=== PATIENT | female | born 1945 | race Caucasian/White ===

== ENCOUNTER 2023-11-09 09:06 | Inpatient (IN) | payer OTHER ==
--- OUTSIDE RECORDS SUMMARY | 2023-11-09 09:12 | XMS REPORT | Continuity of Care Document ---
Author Name Unknown Address [address] [facility] [place] [address] [facility] [address] [facility] [address] [place] [address] Care Team Providers Care Cath Lab Nurse Name Role Phone Pcp, Patient Does Not Have A Primary Care Physic partha Doctor Unassigned, [place] Attending Clinician U Ras Saldana MD Attending Clinician [phone] Soto Timmons Attending Clinician [phone] SOTO PRIETO Attending Clinician Unavailable RAS DONOHUE Attending Clinician Unavailabl e ADRIAN CHUNG Attending Clinician Unavailable Adrian Chung MD Attending Clinician Lab, Ang - Db Attending Clinician Unavailable ADRIAN CHUNG Admitting Clinician Unavailable SOTO PRIETO Admitting Clinician Unavailable Payers Payer Name Policy Type Policy Number Effective Date Expirati on Date Source Problems Condition Name Condition Details Condition Category Status Onset Date Resolution Date Last Treatment Date Treating Clinician Comments Source Postmenopa usal bleeding Postmenopa usal bleeding Disease Active 04-28 00:00: 00 [facility] acute hospital Allergies, Adverse Reactions, Alerts Allergy Name Allergy Type Status Severity Reaction(s) Onset Date Inactive Date Treating Clinician Comments Source NO KNOWN ALLERGIE S Drug Class Active General acute hospital Social History Social Habit Start Date Stop Date Quantity Comments Source Sexual orientation U [facility] Exposure to SARS-CoV-2 (event) 2023-01-13 00:00:00 2023-01-23 15:02:00 Not sure [facility] Alcohol intake 2022-11-14 00:00:00 2022-11-14 00:00:00 [facility] History of Social function 2022-09-27 00:00:00 2022-09-27 00:00:00 [facility] Sex Assigned At 1945 00:00:00 1945 00:00:00 [facility] Smoking Status Start Date Stop Date Source Tobacco smoking consumption unknown [facility] Medications Ordered Medication Name Filled Medication Name Start Date Stop Date Current Medication? Ordering Clinician Indication Dosage Frequency Signature (SIG) Comments Components Source meloxicam 15 mg tablet 01-23 00:00: 00 02-23 04:59 :00 No [id number] 05 15mg Take 1 tablet by mouth in the morning for 30 days. General acute hospital meloxicam 15 mg tablet 01-23 00:00: 00 02-23 04:59 :00 No [id number] 05 15mg Take 1 tablet by mouth in the morning for 30 days. General acute hospital meloxicam 15 mg tablet 08 00:00: 00 02-23 04:59 :00 No [id number] 05 15mg Take 1 tablet by mouth in the morning for 30 days. General acute hospital traMADoL 50 mg tablet 2-16 00:00: 00 Yes [id number] 50mg Take 1 tablet by mouth every 4 (four) hours as needed for Pain (scale 7-10). Indication s: acute pain [facility] traMADoL 50 mg tablet 0 2-16 00:00: 00 Yes 4647 50mg Take 1 tablet by mouth every 4 (four) hours as needed for Pain (scale 7-10). Indication s: acute pain [facility] traMADoL 50 mg tablet 0 2-16 00:00: 00 Yes 4647 50mg Take 1 tablet by mouth every 4 (four) hours as needed for Pain (scale 7-10). Indication s: acute pain [facility] traMADoL 50 mg tablet 2023-0 2-16 00:00: 00 Yes 4647 50mg Take 1 tablet by mouth every 4 (four) hours as needed for Pain (scale 7-10). Indication s: acute pain [facility] traMADoL 50 mg tablet 0 2-16 00:00: 00 Yes 4647 50mg Take 1 tablet by mouth every 4 (four) hours as needed for Pain (scale 7-10). Indication s: acute pain [facility] traMADoL 50 mg tablet 2-16 00:00: 00 Yes 4647 50mg Take 1 tablet by mouth every 4 (four) hours as needed for Pain (scale 7-10). Indication s: acute pain [facility] traMADoL 50 mg tablet 0 216 00:00: 00 Yes 4647 50mg Take 1 tablet by mouth every 4 (four) hours as needed for Pain (scale 7-10). Indication s: acute pain [facility] traMADoL 50 mg tablet 0 2-16 00:00: 00 Yes 4647 50mg Take 1 tablet by mouth every 4 (four) hours as needed for Pain (scale 7-10). [facility]: [facility] (TYLENOL-CO DEINE #3) 300-30 mg tablet 2-02 00:00: 00 Yes 4647 2{tbl} Take 2 tablets by mouth every 6 (six) hours as needed for Pain (scale 4-6) or Pain (scale 7-10). Indication s: acute pain [facility] acetaminoph en-codeine (TYLENOL-CO DEINE #3) 300-30 mg tablet 0 2-02 00:00: 00 Yes 4647 2{tbl} Take 2 tablets by mouth every 6 (six) hours as needed for Pain (scale 4-6) or Pain (scale 7-10). Indication s: acute pain [facility] acetaminoph en-codeine (TYLENOL-CO DEINE #3) 300-30 mg tablet 2022-0 2-02 00:00: 00 Yes 4647 2{tbl} Take 2 tablets by mouth every 6 (six) hours as needed for Pain (scale 4-6) or Pain (scale 7-10). Indication s: acute pain [facility] acetaminoph en-codeine (TYLENOL-CO DEINE #3) 300-30 mg tablet 2022-0 2-02 00:00: 00 Yes 4647 2{tbl} Take 2 tablets by mouth every 6 (six) hours as needed for Pain (scale 4-6) or Pain (scale 7-10). Indication s: acute pain [facility] acetaminoph en-codeine (TYLENOL-CO DEINE #3) 300-30 mg tablet 3-0 2-02 00:00: 00 Yes 4647 2{tbl} Take 2 tablets by mouth every 6 (six) hours as needed for Pain (scale 4-6) or Pain (scale 7-10). Indication s: acute pain [facility] acetaminoph en-codeine (TYLENOL-CO DEINE #3) 300-30 mg tablet 3-0 2- 00:00: 00 Yes 4647 2{tbl} Take 2 tablets by mouth every 6 (six) hours as needed for Pain (scale 4-6) or Pain (scale 7-10). Indication s: acute pain [facility] acetaminoph en-codeine (TYLENOL-CO DEINE #3) 300-30 mg tablet 2022-0 2- 00:00: 00 Yes 4647 2{tbl} Take 2 tablets by mouth every 6 (six) hours as needed for Pain (scale 4-6) or Pain (scale 7-10). Indication s: acute pain [facility] acetaminoph en-codeine (TYLENOL-CO DEINE #3) 300-30 mg tablet 3-0 2-02 00:00: 00 Yes 4647 2{tbl} Take 2 tablets by mouth every 6 (six) hours as needed for Pain (scale 4-6) or Pain (scale 7-10). Indication s: acute pain [facility] acetaminoph en-codeine (TYLENOL-CO DEINE #3) 300-30 mg tablet 3-0 2-02 00:00: 00 Yes 4647 2{tbl} Take 2 tablets by mouth every 6 (six) hours as needed for Pain (scale 4-6) or Pain (scale 7-10). Indication s: acute pain [facility] acetaminoph en-codeine (TYLENOL-CO DEINE #3) 300-30 mg tablet 12-20 00:00: 00 Yes 4647 2{tbl} Take 2 tablets by mouth every 6 (six) hours as needed for Pain (scale 4-6) or Pain (scale 7-10). Indication s: acute pain [facility] acetaminoph en-codeine (TYLENOL-CO DEINE #3) 300-30 mg tablet 12-20 00:00: 00 Yes 4647 2{tbl} Take 2 tablets by mouth every 6 (six) hours as needed for Pain (scale 4-6) or Pain (scale 7-10). Indication s: acute pain [facility] acetaminoph en-codeine (TYLENOL-CO DEINE #3) 300-30 mg tablet 12-20 00:00: 00 Yes 4647 2{tbl} Take 2 tablets by mouth every 6 (six) hours as needed for Pain (scale 4-6) or Pain (scale 7-10). Indication s: acute pain [facility] HYDROcodone -acetaminop hen (NORCO) 5-325 mg tablet 12-12 00:00: 00 12-20 05:59 :00 No 4647 1{tbl} Take 1 tablet by mouth every 6 (six) hours as needed for Pain (scale 4-6) for up to 7 days. Indication s: acute pain [facility] HYDROcodone -acetaminop hen (NORCO) 5-325 mg tablet -25 00:00: 00 12-20 05:59 :00 No 4647 1{tbl} Take 1 tablet by mouth every 6 (six) hours as needed for Pain (scale 4-6) for up to 7 days. Indication s: acute pain [facility] HYDROcodone -acetaminop hen (NORCO) 5-325 mg tablet 2022-0 -25 00:00: 00 12-20 05:59 :00 No 4647 1{tbl} Take 1 tablet by mouth every 6 (six) hours as needed for Pain (scale 4-6) for up to 7 days. Indication s: acute pain [facility] HYDROcodone -acetaminop hen (NORCO) 5-325 mg tablet 12-12 00:00: 00 12-20 05:59 :00 No 4647 1{tbl} Take 1 tablet by mouth every 6 (six) hours as needed for Pain (scale 4-6) for up to 7 days. Indication s: acute pain [facility] HYDROcodone -acetaminop hen (NORCO) 5-325 mg tablet 12-12 00:00: 00 12-20 05:59 :00 No 4647 1{tbl} Take 1 tablet by mouth every 6 (six) hours as needed for Pain (scale 4-6) for up to 7 days. Indication s: acute pain [facility] HYDROcodone -acetaminop hen (NORCO) 5-325 mg tablet 12-12 00:00: 00 12-20 05:59 :00 No 4647 1{tbl} Take 1 tablet by mouth every 6 (six) hours as needed for Pain (scale 4-6) for up to 7 days. Indication s: acute pain [facility] diclofenac 75 mg EC tablet 2021-11 00:00: 00 10-28 05:59 :00 No [id number] 9100 75mg Take 1 tablet by mouth in the morning and 1 tablet in the evening. Take with meals. Do all this for 30 days. General acute hospital diclofenac 75 mg EC tablet 2021-11 00:00: 00 10-28 05:59 :00 No [id number] 9100 75mg Take 1 tablet by mouth in the morning and 1 tablet in the evening. Take with meals. Do all this for 30 days. [facility] acute hospital diclofenac 75 mg EC tablet 2021-11 00:00: 00 10-28 05:59 :00 No [id number] 9100 75mg Take 1 tablet by mouth in the morning and 1 tablet in the evening. Take with meals. Do all this for 30 days. [facility] acute hospital diclofenac 75 mg EC tablet 2021-11 00:00: 00 10-28 05:59 :00 No [id number] 9100 75mg Take 1 tablet by mouth in the morning and 1 tablet in the evening. Take with meals. Do all this for 30 days. [facility] CLONIDINE 0.1 MG ORAL TAB 03-28 14:41: 37 Yes 1 bid [facility] CLONIDINE 0.1 MG ORAL TAB 03-28 14:41: 37 Yes 1 bid [facility] CLONIDINE 0.1 MG ORAL TAB 03-28 14:41: 37 Yes 1 bid [facility] CLONIDINE 0.1 MG ORAL TAB 03-28 14:41: 37 Yes 1 bid [facility] CLONIDINE 0.1 MG ORAL TAB 03-28 14:41: 37 Yes 1 bid [facility] CLONIDINE 0.1 MG ORAL TAB 03-28 14:41: 37 Yes 1 bid [facility] CLONIDINE 0.1 MG ORAL TAB 03-28 14:41: 37 Yes 1 bid [facility] CLONIDINE 0.1 MG ORAL TAB 03-28 14:41: 37 Yes 1 bid [facility] CLONIDINE 0.1 MG ORAL TAB 03-28 14:41: 37 Yes 1 bid [facility] CLONIDINE 0.1 MG ORAL TAB 03-28 14:41: 37 Yes 1 bid [facility] CLONIDINE 0.1 MG ORAL TAB 03-28 14:41: 37 Yes 1 bid [facility] CLONIDINE 0.1 MG ORAL TAB 03-28 14:41: 37 Yes 1 bid [facility] CLONIDINE 0.1 MG ORAL TAB 03-28 14:41: 37 Yes 1 bid [facility] CLONIDINE 0.1 MG ORAL TAB 03-28 14:41: 37 Yes 1 bid [facility] CLONIDINE 0.1 MG ORAL TAB 03-28 14:41: 37 Yes 1 bid [facility] CLONIDINE 0.1 MG ORAL TAB 03-28 14:41: 37 Yes 1 bid [facility] CLONIDINE 0.1 MG ORAL TAB 03-28 14:41: 37 Yes 1 bid [facility] CLONIDINE 0.1 MG ORAL TAB 03-28 14:41: 37 Yes 1 bid [facility] CLONIDINE 0.1 MG ORAL TAB 03-28 14:41: 37 Yes 1 bid [facility] CLONIDINE 0.1 MG ORAL TAB 03-28 14:41: 37 Yes 1 bid [facility] CLONIDINE 0.1 MG ORAL TAB 03-28 14:41: 37 Yes 1 bid [facility] CLONIDINE 0.1 MG ORAL TAB 03-28 14:41: 37 Yes 1 bid [facility] CLONIDINE 0.1 MG ORAL TAB 03-28 14:41: 37 Yes 1 bid [facility] CLONIDINE 0.1 MG ORAL TAB 03-28 14:41: 37 Yes 1 bid [facility] CLONIDINE 0.1 MG ORAL TAB 03-28 14:41: 37 Yes 1 bid [facility] CLONIDINE 0.1 MG ORAL TAB 03-28 14:41: 37 Yes 1 bid [facility] CLONIDINE 0.1 MG ORAL TAB 03-28 14:41: 37 Yes 1 bid [facility] CLONIDINE 0.1 MG ORAL TAB 03-28 14:41: 37 Yes 1 bid [facility] CLONIDINE 0.1 MG ORAL TAB 03-28 14:41: 37 Yes 1 bid [facility] CLONIDINE 0.1 MG ORAL TAB 03-28 14:41: 37 Yes 1 bid [facility] CLONIDINE 0.1 MG ORAL TAB 03-28 14:41: 37 Yes 1 bid [facility] CLONIDINE 0.1 MG ORAL TAB 03-28 14:41: 37 Yes 1 bid [facility] CLONIDINE 0.1 MG ORAL TAB 03-28 14:41: 37 Yes 1 bid [facility] CLONIDINE 0.1 MG ORAL TAB 03-28 14:41: 37 Yes 1 bid [facility] CLONIDINE 0.1 MG ORAL TAB 03-28 14:41: 37 Yes 1 bid [facility] CLONIDINE 0.1 MG ORAL TAB 03-28 14:41: 37 Yes 1 bid [facility] CLONIDINE 0.1 MG ORAL TAB 03-28 14:41: 37 Yes 1 bid [facility] CLONIDINE 0.1 MG ORAL TAB 03-28 14:41: 37 Yes 1 bid [facility] CARDIZEM 30 MG ORAL TAB 03-28 00:00: 00 Yes [id number] 1 by mouth four times a day [facility] ATIVAN 0.5 MG ORAL TAB 03-28 00:00: 00 Yes [id number] take one when anxious every 6 hourly [facility] CLONIDINE 0.1 MG ORAL TAB 03-28 00:00: 00 Yes 1 by mouth two times a day [facility] CARDIZEM 30 MG ORAL TAB 03-28 00:00: 00 Yes [id number] 1 by mouth four times a day [facility] ATIVAN 0.5 MG ORAL TAB 03-28 00:00: 00 Yes [id number] take one when anxious every 6 hourly [facility] CLONIDINE 0.1 MG ORAL TAB 03-28 00:00: 00 Yes 1 by mouth two times a day [facility] CARDIZEM 30 MG ORAL TAB 03-28 00:00: 00 Yes [id number] 1 by mouth four times a day [facility] ATIVAN 0.5 MG ORAL TAB 03-28 00:00: 00 Yes [id number] take one when anxious every 6 hourly [facility] CLONIDINE 0.1 MG ORAL TAB 03-28 00:00: 00 Yes 1 by mouth two times a day [facility] CARDIZEM 30 MG ORAL TAB 03-28 00:00: 00 Yes [id number] 1 by mouth four times a day [facility] ATIVAN 0.5 MG ORAL TAB 03-28 00:00: 00 Yes [id number] take one when anxious every 6 hourly [facility] CLONIDINE 0.1 MG ORAL TAB 0 03-28 00:00: 00 Yes 1 by mouth two times a day [facility] CARDIZEM 30 MG ORAL TAB 03-28 00:00: 00 Yes [id number] 1 by mouth four times a day [facility] ATIVAN 0.5 MG ORAL TAB 0 03-28 00:00: 00 Yes [id number] take one when anxious every 6 hourly [facility] CLONIDINE 0.1 MG ORAL TAB 0 03-28 00:00: 00 Yes 1 by mouth two times a day [facility] CARDIZEM 30 MG ORAL TAB 03-28 00:00: 00 Yes [id number] 1 by mouth four times a day [facility] ATIVAN 0.5 MG ORAL TAB 03-28 00:00: 00 Yes [id number] take one when anxious every 6 hourly [facility] CARDIZEM 30 MG ORAL TAB 03-28 00:00: 00 Yes [id number] 1 by mouth four times a day [facility] ATIVAN 0.5 MG ORAL TAB 03-28 00:00: 00 Yes [id number] take one when anxious every 6 hourly [facility] CLONIDINE 0.1 MG ORAL TAB 03-28 00:00: 00 Yes 1 by mouth two times a day [facility] CARDIZEM 30 MG ORAL TAB 03-28 00:00: 00 Yes [id number] 1 by mouth four times a day [facility] ATIVAN 0.5 MG ORAL TAB 0 03-28 00:00: 00 Yes [id number] take one when anxious every 6 hourly [facility] CLONIDINE 0.1 MG ORAL TAB 0 03-28 00:00: 00 Yes 1 by mouth two times a day [facility] CLONIDINE 0.1 MG ORAL TAB 2006-0 03-28 00:00: 00 Yes 1 by mouth two times a day [facility] CARDIZEM 30 MG ORAL TAB 2006-0 03-28 00:00: 00 Yes [id number] 1 by mouth four times a day [facility] ATIVAN 0.5 MG ORAL TAB 0 03-28 00:00: 00 Yes [id number] take one when anxious every 6 hourly [facility] CLONIDINE 0.1 MG ORAL TAB 2006-0 03-28 00:00: 00 Yes 1 by mouth two times a day [facility] CARDIZEM 30 MG ORAL TAB 0 03-28 00:00: 00 Yes [id number] 1 by mouth four times a day [facility] ATIVAN 0.5 MG ORAL TAB 0 03-28 00:00: 00 Yes [id number] take one when anxious every 6 hourly [facility] CLONIDINE 0.1 MG ORAL TAB 0 03-28 00:00: 00 Yes 1 by mouth two times a day [facility] CARDIZEM 30 MG ORAL TAB 0 03-28 00:00: 00 Yes [id number] 1 by mouth four times a day [facility] ATIVAN 0.5 MG ORAL TAB 0 03-28 00:00: 00 Yes [id number] take one when anxious every 6 hourly [facility] CLONIDINE 0.1 MG ORAL TAB 0 03-28 00:00: 00 Yes 1 by mouth two times a day [facility] CARDIZEM 30 MG ORAL TAB 0 03-28 00:00: 00 Yes [id number] 1 by mouth four times a day [facility] ATIVAN 0.5 MG ORAL TAB 0 03-28 00:00: 00 Yes [id number] take one when anxious every 6 hourly [facility] CLONIDINE 0.1 MG ORAL TAB 0 03-28 00:00: 00 Yes 1 by mouth two times a day [facility] CARDIZEM 30 MG ORAL TAB 0 03-28 00:00: 00 Yes [id number] 1 by mouth four times a day [facility] ATIVAN 0.5 MG ORAL TAB 2006-0 03-28 00:00: 00 Yes [id number] take one when anxious every 6 hourly [facility] CLONIDINE 0.1 MG ORAL TAB 2006-0 03-28 00:00: 00 Yes 1 by mouth two times a day [facility] CARDIZEM 30 MG ORAL TAB 0 03-28 00:00: 00 Yes [id number] 1 by mouth four times a day [facility] ATIVAN 0.5 MG ORAL TAB 0 03-28 00:00: 00 Yes [id number] take one when anxious every 6 hourly [facility] CLONIDINE 0.1 MG ORAL TAB 0 03-28 00:00: 00 Yes 1 by mouth two times a day [facility] CARDIZEM 30 MG ORAL TAB 03-28 00:00: 00 Yes [id number] 1 by mouth four times a day [facility] ATIVAN 0.5 MG ORAL TAB 03-28 00:00: 00 Yes [id number] take one when anxious every 6 hourly [facility] CLONIDINE 0.1 MG ORAL TAB 0 03-28 00:00: 00 Yes 1 by mouth two times a day [facility] CARDIZEM 30 MG ORAL TAB 03-28 00:00: 00 Yes [id number] 1 by mouth four times a day [facility] ATIVAN 0.5 MG ORAL TAB 03-28 00:00: 00 Yes [id number] take one when anxious every 6 hourly [facility] CLONIDINE 0.1 MG ORAL TAB 0 03-28 00:00: 00 Yes 1 by mouth two times a day [facility] CARDIZEM 30 MG ORAL TAB 0 03-28 00:00: 00 Yes [id number] 1 by mouth four times a day [facility] ATIVAN 0.5 MG ORAL TAB 0 03-28 00:00: 00 Yes [id number] take one when anxious every 6 hourly [facility] CLONIDINE 0.1 MG ORAL TAB 03-28 00:00: 00 Yes 1 by mouth two times a day [facility] CARDIZEM 30 MG ORAL TAB 0 03-28 00:00: 00 Yes [id number] 1 by mouth four times a day [facility] ATIVAN 0.5 MG ORAL TAB 0 03-28 00:00: 00 Yes [id number] take one when anxious every 6 hourly [facility] CLONIDINE 0.1 MG ORAL TAB 03-28 00:00: 00 Yes 1 by mouth two times a day [facility] CARDIZEM 30 MG ORAL TAB 03-28 00:00: 00 Yes [id number] 1 by mouth four times a day [facility] ATIVAN 0.5 MG ORAL TAB 03-28 00:00: 00 Yes [id number] take one when anxious every 6 hourly [facility] CLONIDINE 0.1 MG ORAL TAB 03-28 00:00: 00 Yes 1 by mouth two times a day [facility] CARDIZEM 30 MG ORAL TAB 03-28 00:00: 00 Yes [id number] 1 by mouth four times a day [facility] CARDIZEM 30 MG ORAL TAB 03-28 00:00: 00 Yes [id number] 1 by mouth four times a day [facility] [place] ATIVAN 0.5 MG ORAL TAB 03-28 00:00: 00 Yes [id number] take one when anxious every 6 hourly [facility] CLONIDINE 0.1 MG ORAL TAB 03-28 00:00: 00 Yes 1 by mouth two times a day [facility] ATIVAN 0.5 MG ORAL TAB 03-28 00:00: 00 Yes [id number] take one when anxious every 6 hourly [facility] CARDIZEM 30 MG ORAL TAB 03-28 00:00: 00 Yes [id number] 1 by mouth four times a day [facility] ATIVAN 0.5 MG ORAL TAB 03-28 00:00: 00 Yes [id number] take one when anxious every 6 hourly [facility] CLONIDINE 0.1 MG ORAL TAB 03-28 00:00: 00 Yes 1 by mouth two times a day [facility] CLONIDINE 0.1 MG ORAL TAB 03-28 00:00: 00 Yes 1 by mouth two times a day [facility] CARDIZEM 30 MG ORAL TAB 03-28 00:00: 00 Yes [id number] 1 by mouth four times a day [facility] ATIVAN 0.5 MG ORAL TAB 03-28 00:00: 00 Yes [id number] take one when anxious every 6 hourly [facility] CLONIDINE 0.1 MG ORAL TAB 03-28 00:00: 00 Yes 1 by mouth two times a day [facility] CARDIZEM 30 MG ORAL TAB 03-28 00:00: 00 Yes [id number] 1 by mouth four times a day [facility] ATIVAN 0.5 MG ORAL TAB 03-28 00:00: 00 Yes [id number] take one when anxious every 6 hourly [facility] CLONIDINE 0.1 MG ORAL TAB 03-28 00:00: 00 Yes 1 by mouth two times a day [facility] CARDIZEM 30 MG ORAL TAB 03-28 00:00: 00 Yes [id number] 1 by mouth four times a day [facility] ATIVAN 0.5 MG ORAL TAB 03-28 00:00: 00 Yes [id number] take one when anxious every 6 hourly [facility] CLONIDINE 0.1 MG ORAL TAB 03-28 00:00: 00 Yes 1 by mouth two times a day [facility] CARDIZEM 30 MG ORAL TAB 03-28 00:00: 00 Yes [id number] 1 by mouth four times a day [facility] ATIVAN 0.5 MG ORAL TAB 03-28 00:00: 00 Yes [id number] take one when anxious every 6 hourly [facility] CLONIDINE 0.1 MG ORAL TAB 03-28 00:00: 00 Yes 1 by mouth two times a day [facility] CARDIZEM 30 MG ORAL TAB 03-28 00:00: 00 Yes [id number] 1 by mouth four times a day [facility] CARDIZEM 30 MG ORAL TAB 0 03-28 00:00: 00 Yes [id number] 1 by mouth four times a day [facility] ATIVAN 0.5 MG ORAL TAB 0 03-28 00:00: 00 Yes [id number] take one when anxious every 6 hourly [facility] CLONIDINE 0.1 MG ORAL TAB 03-28 00:00: 00 Yes 1 by mouth two times a day [facility] CARDIZEM 30 MG ORAL TAB 03-28 00:00: 00 Yes [id number] 1 by mouth four times a day [facility] ATIVAN 0.5 MG ORAL TAB 03-28 00:00: 00 Yes [id number] take one when anxious every 6 hourly [facility] CLONIDINE 0.1 MG ORAL TAB 03-28 00:00: 00 Yes 1 by mouth two times a day [facility] ATIVAN 0.5 MG ORAL TAB 03-28 00:00: 00 Yes [id number] take one when anxious every 6 hourly [facility] CARDIZEM 30 MG ORAL TAB 03-28 00:00: 00 Yes [id number] 1 by mouth four times a day [facility] ATIVAN 0.5 MG ORAL TAB 03-28 00:00: 00 Yes [id number] take one when anxious every 6 hourly [facility] CLONIDINE 0.1 MG ORAL TAB 03-28 00:00: 00 Yes 1 by mouth two times a day [facility] CLONIDINE 0.1 MG ORAL TAB 03-28 00:00: 00 Yes 1 by mouth two times a day [facility] CARDIZEM 30 MG ORAL TAB 03-28 00:00: 00 Yes [id number] 1 by mouth four times a day [facility] ATIVAN 0.5 MG ORAL TAB 03-28 00:00: 00 Yes [id number] take one when anxious every 6 hourly [facility] CLONIDINE 0.1 MG ORAL TAB 03-28 00:00: 00 Yes 1 by mouth two times a day [facility] CARDIZEM 30 MG ORAL TAB 0 03-28 00:00: 00 Yes [id number] 1 by mouth four times a day [facility] ATIVAN 0.5 MG ORAL TAB 0 03-28 00:00: 00 Yes [id number] take one when anxious every 6 hourly [facility] CLONIDINE 0.1 MG ORAL TAB 03-28 00:00: 00 Yes 1 by mouth two times a day [facility] CARDIZEM 30 MG ORAL TAB 03-28 00:00: 00 Yes [id number] 1 by mouth four times a day [facility] ATIVAN 0.5 MG ORAL TAB 03-28 00:00: 00 Yes [id number] take one when anxious every 6 hourly [facility] CLONIDINE 0.1 MG ORAL TAB 03-28 00:00: 00 Yes 1 by mouth two times a day [facility] CARDIZEM 30 MG ORAL TAB 03-28 00:00: 00 Yes [id number] 1 by mouth four times a day [facility] ATIVAN 0.5 MG ORAL TAB 03-28 00:00: 00 Yes [id number] take one when anxious every 6 hourly [facility] CLONIDINE 0.1 MG ORAL TAB 03-28 00:00: 00 Yes 1 by mouth two times a day [facility] CARDIZEM 30 MG ORAL TAB 03-28 00:00: 00 Yes [id number] 1 by mouth four times a day [facility] ATIVAN 0.5 MG ORAL TAB 03-28 00:00: 00 Yes [id number] take one when anxious every 6 hourly [facility] CLONIDINE 0.1 MG ORAL TAB 03-28 00:00: 00 Yes 1 by mouth two times a day [facility] CARDIZEM 30 MG ORAL TAB 03-28 00:00: 00 Yes [id number] 1 by mouth four times a day [facility] ATIVAN 0.5 MG ORAL TAB 03-28 00:00: 00 Yes [id number] take one when anxious every 6 hourly [facility] CLONIDINE 0.1 MG ORAL TAB 03-28 00:00: 00 Yes 1 by mouth two times a day [facility] CARDIZEM 30 MG ORAL TAB 0 03-28 00:00: 00 Yes [id number] 1 by mouth four times a day [facility] ATIVAN 0.5 MG ORAL TAB 03-28 00:00: 00 Yes [id number] take one when anxious every 6 hourly [facility] CLONIDINE 0.1 MG ORAL TAB 03-28 00:00: 00 Yes 1 by mouth two times a day [facility] CARDIZEM 30 MG ORAL TAB 03-28 00:00: 00 Yes [id number] 1 by mouth four times a day [facility] ATIVAN 0.5 MG ORAL TAB 03-28 00:00: 00 Yes [id number] take one when anxious every 6 hourly [facility] CLONIDINE 0.1 MG ORAL TAB 03-28 00:00: 00 Yes 1 by mouth two times a day [facility] Vital Signs Vital Name Observation Time Observation Value Comments S ource Body height 2023-01-23 20:08:00 157.5 cm [facility] Body weight 2023-01-23 20:08:00 69.854 kg [facility] BMI 2023-01-23 20:08:00 28.17 kg/m2 [facility] Body weight 2022-12-26 18:55:00 69.854 kg [facility] BMI 2022-12-26 18:55:00 28.17 kg/m2 [facility] Systolic blood pressure 2022-12-13 20:21:00 173 mm[Hg] [facility] Diastolic blood pressure 2022-12-13 20:21:00 69 mm[Hg] [facility] Heart rate 2022-12-13 20:10:00 98 /min [facility] Body height 2022-12-13 20:10:00 157.5 cm [facility] Body weight 2022-12-13 20:10:00 69.854 kg [facility] BMI 2022-12-13 20:10:00 28.17 kg/m2 [facility] Oxygen saturation in Arterial blood by Pulse oximetry 2022-12-13 20:10:00 97 /min [facility] Systolic blood pressure 2022-11-30 21:24:00 182 mm[Hg] manual [facility] Diastolic blood pressure 2022-11-30 21:24:00 82 mm[Hg] manual [facility] Heart rate 2022-11-30 21:24:00 81 /[facility] 2022-11-30 21:24:00 19 /min [facility] Body height 2022-11-30 21:24:00 157.5 cm [facility] Body weight 2022-11-30 21:24:00 69.99 kg Univ [facility] BMI 2022-11-30 21:24:00 28.22 kg/m2 Univ [facility] Oxygen saturation in Arterial blood by Pulse oximetry 2022-11-30 21:24:00 99 /min [facility] Body height 2022-11-14 20:48:00 157.5 cm [facility] Body weight 2022-11-14 20:48:00 65.545 kg [facility] BMI 2022-11-14 20:48:00 26.43 kg/m2 Univ [facility] Systolic blood pressure 2022-09-27 19:25:00 207 mm[Hg] [facility] Diastolic blood pressure 2022-09-27 19:25:00 99 mm[Hg] [facility] Heart rate 2022-09-27 19:25:00 90 /min Unive [facility] Oxygen saturation in Arterial blood by Pulse oximetry 2022-09-27 19:25:00 97 /min [facility] Body height 2022-09-27 19:15:00 157.5 cm Univ [facility] Body weight 2022-09-27 19:15:00 68.811 kg [facility] BMI 2022-09-27 19:15:00 27.75 kg/m2 [facility] Procedures Procedure Date / Time Performed Performing Clinicia n Source REFERRAL- REQUEST/RESPONSE 2023-03-13 05:01:00 Doctor Unassigned, [place] [facility] REFERRAL- REQUEST/RESPONSE 2023-02-13 05:01:00 Doctor Unassigned, [place] [facility] REFERRAL- REQUEST/RESPONSE 2022-12-17 06:01:00 Doctor Unassigned, [place] [facility] DSU PRE-OP 2022-12-12 06:01:00 Doctor Unass igned, [place] [facility] HB ECG ROUTINE & RHYTHM STRIP 2022-11-30 21:19:39 Adrian Chung [facility] ASSIGNMENT OF BENEFITS 2022-11-14 20:43:38 Docto r Unassigned, [place] [facility] Encounters Start Date/Time End Date/Time Encounter Type Admission Type Attending [facility] Care Facility Care Department Encounter ID Source 2023-03-13 00:00:00 2023-03-13 00:00:00 Orders Only Doctor Unassigned, [place] [facility] 1.2840.114 350.1.13.10 4.2.7.2.686 [id number] General acute hospital 2023-03-12 00:00:00 2023-03-12 00:00:00 Telephone Ras Donohue [facility] 1.840.114 350.1.13.10 4.2.7.2.686 [id number] General acute hospital 2023-02-13 00:00:00 2023-02-13 00:00:00 Orders Only Doctor Unassigned, [place] [facility] 1.2840.114 350.1.13.10 4.2.7.2.686 [id number] General acute hospital 2023-01-25 00:00:00 2023-01-25 00:00:00 Patient Secure Msg Doctor Unassigned, [place] [facility] 1.2840.114 350.1.13.10 4.2.7.2.686 [id number] General acute hospital 2023-01-23 13:00:00 2023-01-23 13:15:00 Office Visit Soto Prieto [facility] 1.284.114 350.1.13.10 4.2.7.2.686 [id number] General acute hospital 2023-01-23 13:00:00 2023-01-23 13:00:00 Outpatient Lis CRYSTAL SOTO [facility] [id number] General acute hospital 2023-01-17 00:00:00 2023-01-17 00:00:00 Patient Secure Msg Doctor Unassigned, [place] [facility] 1.2.840.114 350.1.13.10 4.2.7.2.686 [id number] General acute hospital 2023-01-03 00:00:00 2023-01-03 00:00:00 Patient Secure Msg [facility] 1..840.114 350.1.13.10 4.2.7.2.686 [id number] General acute hospital 2022-12-27 00:00:00 2022-12-27 00:00:00 Patient Secure Msg Doctor Unassigned, [place] [facility] 1.840.114 350.1.13.10 4.2.7.2.686 [id number] General acute hospital 2022-12-26 13:10:00 2022-12-26 23:59:00 Outpatient R SOTO PRIETO [facility] [id number] General acute hospital 2022-12-26 13:15:00 2022-12-26 13:46:14 Office Visit Prieto [facility] 1..840.114 350.1.13.10 4.2.7.2.686 [id number] General acute hospital 2022-12-18 00:00:00 2022-12-18 00:00:00 Telephone [facility] 1.840.114 350.1.13.10 4.2.7.2.686 [id number] General acute hospital 2022-12-17 00:00:00 2022-12-17 00:00:00 Telephone Ras [facility] 1.84.114 350.1.13.10 4.2.7.2.686 [id number] General acute hospital 2022-12-17 00:00:00 2022-12-17 00:00:00 Orders Only Doctor Unassigned, [place] [facility] 1.84.114 350.1.13.10 4.2.7.2.686 [id number] General acute hospital 2022-12-14 09:00:00 2022-12-14 09:00:00 Outpatient R SOTO PRIETO [facility] [id number] General acute hospital 2022-12-13 14:15:00 2022-12-13 14:39:09 Outpatient R CRYSTAL SOTO [facility] [id number] General acute hospital 2022-12-13 14:15:00 2022-12-13 14:39:09 Office Visit Prieto [facility] 1.840.114 350.1.13.10 4.2.7.2.686 [id number] General acute hospital 2022-12-13 00:00:00 2022-12-13 00:00:00 Telephone [facility] 1.840.114 350.1.13.10 4.2.7.2.686 [id number] General acute hospital 2022-12-12 00:00:00 2022-12-12 00:00:00 Outpatient R RAS DONOHUE [facility] [id number] General acute hospital 2022-12-12 00:00:00 2022-12-12 00:00:00 Orders Only Doctor Unassigned, [place] [facility] 1..840.114 350.1.13.10 4.2.7.2.686 [id number] General acute hospital 2022-12-11 13:00:00 2022-12-11 13:00:00 Outpatient Lis CHUNG [facility] [id number] General acute hospital 2022-12-08 00:00:00 2022-12-08 00:00:00 Patient Secure Msg [facility] 1..840.114 350.1.13.10 4.2.7.2.686 [id number] General acute hospital 2022-12-07 15:00:00 2022-12-07 23:59:00 [id number] 2022-12-06 08:45:00 2022-12-06 09:00:00 Developer Analyst Visit Lab, [place] [facility] 1..840.114 350.1.13.10 4.2.7.2.686 [id number] General acute hospital 2022-12-06 08:45:00 2022-12-06 08:45:00 Outpatient SOTO MCCRARY [facility] [id number] General acute hospital 2022-12-06 00:00:00 2022-12-06 00:00:00 Patient Secure Msg Doctor Unassigned, [place] [facility] 1..840.114 350.1.13.10 4.2.7.2.686 [id number] General acute hospital 2022-12-04 00:00:00 2022-12-04 00:00:00 Telephone Ras Donohue [facility] 1.84.114 350.1.13.10 4.2.7.2.686 [id number] General acute hospital 2022-12-04 00:00:00 2022-12-04 00:00:00 Telephone Ras Donohue [facility] 1.84114 350.1.13.10 4.2.7.2.686 [id number] General acute hospital 2022-11-30 15:20:00 2022-11-30 15:42:07 Outpatient R SHE[facility] [id number] General acute hospital 2022-11-30 15:20:00 2022-11-30 15:42:07 [facility] 1.84.114 350.1.13.10 4.2.7.2.686 [id number] General acute hospital 2022-11-29 16:30:03 2022-11-29 23:59:00 Outpatient R SOTO PRIETO [facility] [id number] General acute hospital 2022-11-27 00:00:00 2022-11-27 00:00:00 Patient Secure Msg Doctor Unassigned, [place] [facility] 1.84.114 350.1.13.10 4.2.7.2.686 [id number] General acute hospital 2022-11-26 00:00:00 2022-11-26 00:00:00 Telephone Ras Donohue [facility] [place] 1.84.114 350.1.13.10 4.2.7.2.686 [id number] General acute hospital 2022-11-19 00:00:00 2022-11-19 00:00:00 Telephone [facility], [facility] 1..840.114 350.1.13.10 4.2.7.2.686 [id number] General acute hospital 2022-11-14 15:00:00 2022-11-14 16:07:33 Office Visit Ras Donohue [facility] 1..840.114 350.1.13.10 4.2.7.2.686 [id number] [facility] 2022-11-14 15:00:00 2022-11-14 16:07:33 Outpatient R RAS DONOHUE [facility] [id number] General acute hospital 2022-11-14 00:00:00 2022-11-14 00:00:00 Orders Only Doctor Unassigned, [place] [facility] 1..840.114 350.1.13.10 4.2.7.2.686 [id number] General acute hospital 2022-10-26 00:00:00 2022-10-26 00:00:00 Telephone Ras [facility] 1..840.114 350.1.13.10 4.2.7.2.686 [id number] General acute hospital 2022-09-27 14:20:00 2022-09-27 23:59:00 Outpatient R SOTO PRIETO [facility] [id number] General acute hospital 2022-09-27 13:15:00 2022-09-27 15:22:52 Office Visit Kate [facility]ott [facility] 1..840.114 350.1.13.10 4.2.7.2.686 [id number] General acute hospital 2007-03-28 00:00:00 2007-03-28 14:48:19 Outpatient [facility] [id number] General acute hospital 2007-03-28 00:00:00 2007-03-28 11:54:12 Outpatient [facility] [id number] General acute hospital
[2023-11-09 10:26] LABS: Absolute Lymphocytes (CBC) 1.3 K/uL (0.7-4.9); Lymphocytes % 13.5 % (15.3-44.8); MCV 92.3 fL (80-100); MPV 9.4 fL (7.6-11.3); Platelets 232 thou/uL (152-406); RBC Red Blood Cell Count 4.99 M/uL (3.86-4.86)
[2023-11-09] MEDS ORDERED: ONDANSETRON 4 MG/2 ML VIAL ONE (10:27)
[2023-11-09] MEDS ORDERED: FAMOTIDINE 20 MG/2 ML VIAL IV ONE (10:27)
[2023-11-09] MEDS ORDERED: MECLIZINE HCL 12.5 MG TAB ONE (10:27)
[2023-11-09] MEDS ORDERED: NA CHLORIDE 0.9% 1,000 ML ONE (10:28)
[2023-11-09 10:54] LABS: Albumin 4.2 g/dL (3.4-5.0); Bilirubin Direct 0.1 mg/dL (0-0.2); Bilirubin Indirect, Calculated 0.3 mg/dL (0.2-0.8); Bilirubin Total 0.4 mg/dL (0.2-1.0); Magnesium 1.9 mg/dL (1.6-2.4); Potassium 3.8 mEq/L (3.5-5.1); Protein, Total 8.2 g/dL (6.4-8.2); Troponin High Sensitivity 7.1 pg/mL (<58.9)
[2023-11-09 10:58] LABS: Specific Gravity 1.029 (1.005-1.030); Urine Bacteria <20 /HPF (<20); Urine Bilirubin NEGATIVE (Negative); Urine Blood Negative (Negative); Urine Clarity Extremely Turbid (Clear); Urine Color Yellow (Yellow); Urine Glucose 2+ (Negative); Urine Mucus Slight /HPF (None Seen); Urine Protein TRACE (Negative); Urine RBC <5 /HPF (None Seen); Urine Urobilinogen Normal (Normal); Urine pH 5.5 (5.0-7.0)
--- NOTE | 2023-11-09 11:05 | RAD REPORT ---
EXAM DESCRIPTION: RAD - Shoulder Left 2 View - 11/09/2023 10:47 am CLINICAL HISTORY: Left shoulder pain FINDINGS: No fracture or dislocation is seen. Moderate osteoarthritis AC joint consisting of osteophytes and joint space narrowing. Mild osteoarthritis glenohumeral joint. Osteoporosis
--- NOTE | 2023-11-09 12:04 | ER ---
Nurse's Notes [facility] Name: Sadie Reyna Age: 78 yrs Sex: Female : 1945 Arrival Date: 11/09/2023 Time: 09:06 Bed 13 Private MD: Diagnosis: Cellulitis of left upper limb-left shoulder Presentation: 11/09 09:17 Chief complaint: Spouse and/or significant other states: DIZZINESS X1 MONTH. octavia HORTON SINUS CONGESTION, LEG ARM PAIN AND BURPING. NO CP, NO SOB. Coronavirus screen: At this time, the client does not indicate any symptoms associated with coronavirus-19. Ebola Screen: No symptoms or risks identified at this time. Initial Sepsis Screen: Does the patient meet any 2 criteria? No. Patient's initial sepsis screen is negative. Does the patient have a suspected source of infection? No. Patient's initial sepsis screen is negative. Risk Assessment: Do you want to hurt yourself or someone else? Patient reports no desire to harm self or others. Onset of symptoms is unknown. 09:17 Method Of Arrival: [facility] 09:17 Acuity: HEBER 3 jj7 Triage Assessment: 09:24 General: Appears in no apparent distress. comfortable, Behavior is calm, cooperative, jj7 appropriate for age. Pain: Complains of pain in anterior aspect of left shoulder Pain currently is 2 out of 10 on a pain scale. Historical: - Allergies: 09:24 Codeine; jj7 09:24 PENICILLINS; jj7 - PMHx: 09:24 Diabetes mellitus; Hypertensive disorder; Glaucoma; jj7 - PSHx: 09:24 LEFT KNEE REPLACEMENT; CYST REMOVED FROM LEFT SHOULDER; CATARACT; TUBIAL LIGATION; jj7 - Immunization history:: Adult Immunizations up to date, . - Social history:: Smoking status: Patient denies any tobacco usage or history of. Patient/guardian denies using alcohol, street drugs. Screenin:28 [facility] ED Fall Risk Assessment (Adult) History of falling in the last 3 months, jj7 including since admission No falls in past 3 months (0 pts) Confusion or Disorientation No (0 pts) Intoxicated or Sedated No (0 pts) Impaired Gait No (0 pts) Mobility Assist Device Used No (0 pt) Altered Elimination No (0 pt) Score/Fall Risk Level 0 - 2 = Low Risk Oriented to surroundings, Maintained a safe environment. Abuse screen: Denies threats or abuse. Nutritional screening: No deficits noted. Tuberculosis screening: No symptoms or risk factors identified. Assessment: 09:35 General: Appears in no apparent distress. uncomfortable, Behavior is calm, cooperative. rs5 09:35 Pain: Denies pain. Neuro: Level of Consciousness is awake, alert, obeys commands, rs5 Oriented to person, place, time, situation, Ship Mate are equal bilaterally Moves all extremities. Gait is steady, Speech is normal, Facial symmetry appears normal, Pupils are PERRLA, Intact. Neuro: Reports intermittent dizziness for one month. Cardiovascular: Heart tones S1 S2 present Patient's skin is warm and dry. Rhythm is regular. Respiratory: Airway is patent Respiratory effort is even, unlabored, Respiratory pattern is regular, symmetrical, Breath sounds are clear bilaterally. GI: Abdomen is round non-distended, Bowel sounds present X 4 quads. Abd is soft and non tender X 4 quads. Patient currently denies nausea, vomiting. : No signs and/or symptoms were reported regarding the genitourinary system. EENT: No signs and/or symptoms were reported regarding the EENT system. Derm: Skin is intact, Skin is pink, warm \\T\\ dry. one inch incision note to patients left shoulder. Pt states "I had an abscess on my left shoulder that was surgically removed one month ago. I recently had the sutures removed a few days ago." No signs of infection, redness, or swelling noted. Musculoskeletal: Circulation, motion, and sensation intact. Range of motion: intact in all extremities. 10:45 Reassessment: No changes from previously documented assessment. rs5 11:50 Reassessment: Patient and/or family updated on plan of care and expected duration. Pain rs5 level reassessed. Patient is alert, oriented x 3, equal unlabored respirations, skin warm/dry/pink. 13:50 Reassessment:. Reassessment: Patient denies pain at this time. Neuro: Denies dizziness rs5 at this moment. Cardiovascular: Rhythm is regular. Respiratory: Respiratory effort is even, unlabored, Respiratory pattern is regular, symmetrical. 14:46 Reassessment: No changes from previously documented assessment. rs5 Vital Signs: 09:17 BP 167 / 78; Pulse 86; Resp 20; Temp 98.1; Pulse Ox 100% ; Weight 64.05 kg; Height 5 [facility] ft. 2 in. ; Pain 2/10; 10:01 BP 133 / 77; Pulse 70; Resp 18; Temp 98(O); Pulse Ox 99% on R/A; rs5 12:10 BP 126 / 79; Pulse 72; Resp 17; Pulse Ox 99% on R/A; rs5 14:46 BP 128 / 75; Pulse 67; Resp 17; Pulse Ox 99% on R/A; rs5 09:17 Body Mass Index 25.83 (64.05 kg, 157.48 cm) jj7 09:17 Pain Scale: Adult [facility] ED Course: 09:11 Patient arrived in ED. im 09:22 Gavin Olivera PA is PHCP. cp 09:22 Gavin Torres MD is Attending Physician. cp 09:24 Triage completed. jj7 09:24 Gavin Torres MD is Attending Physician. cp 09:24 Arm band placed on left wrist. j7 09:28 Christ Jackson, RN is Primary Nurse. jj7 09:28 Patient has correct armband on for positive identification. Bed in low position. Call [facility] light in reach. Adult w/ patient. 10:20 Initial lab(s) drawn, by me, sent to lab. Inserted saline lock: 20 gauge in right ap3 forearm, using aseptic technique. 10:20 Lactate w/ 2H reflex if indic. Sent. ap3 10:20 Urinalysis W/Microscopic Sent. ap3 10:36 Basic Metabolic Panel Sent. jj7 10:36 CBC with Diff Sent. jj7 10:36 LFT's Sent. jj7 10:36 Magnesium Sent. jj7 10:36 Troponin HS Sent. jj7 10:49 XRAY Shoulder LEFT 2 view In Process Unspecified. EDMS 11:38 CT Head C Spine In Process Unspecified. EDMS 11:39 CT Head Angio In Process Unspecified. EDMS 11:39 CT Neck Angio In Process Unspecified. EDMS 12:02 Braeden Sahu MD is Hospitalizing Provider. cp 12:07 Rosas Ott MD is Hospitalizing Provider. cp 12:25 XRAY Chest (1 view) In Process Unspecified. EDMS 12:30 Inserted saline lock: 22 gauge in left antecubital area, using aseptic technique. Blood ds4 collected. 12:32 Blood Culture Adult (2) Sent. ds4 12:45 Blood Culture Adult (2) Sent. ds4 Administered Medications: 10:34 Drug: NS 0.9% IV 500 ml IV at 250 ml/hr continuous Route: IV; Rate: 250 ml/hr; Site: jj7 right forearm; 11:00 Follow up: Response: No adverse reaction rs5 10:35 Drug: Ondansetron IVP 4 mg IVP once; over 2 minutes Route: IVP; Site: right forearm; jj7 11:00 Follow up: Response: No adverse reaction rs5 10:36 Drug: Famotidine IVP 20 mg IVP once; dilute with 10 mL 0.9% NaCl; give over 2 minutes jj7 Route: IVP; Site: right forearm; 11:00 Follow up: Response: No adverse reaction rs5 10:36 Drug: Meclizine PO 25 mg PO once Route: PO; jj7 12:20 Follow up: Response: No adverse reaction rs5 13:08 Drug: vancoMYCIN IVPB 1 grams IVPB once over 2 hrs Route: IVPB; Infused Over: 2 hrs; rs5 Site: right antecubital; 13:30 Follow up: Response: No adverse reaction rs5 13:08 Drug: NS 0.9% IV 500 ml IV at 500 ml/hr continuous Route: IV; Rate: 500 ml/hr; Site: rs5 right antecubital; 13:30 Follow up: Response: No adverse reaction rs5 13:45 Drug: Aspirin PO Chewable Tablet 81 mg PO once Route: PO; rs5 15:20 Drug: foLIC Acid IVPB 1 mg IVPB once Route: IVPB; Site: right antecubital; rs5 Medication: 09:28 VIS not applicable for this client. jj7 Outcome: 12:03 Decision to Hospitalize by Provider. cp 18:07 Patient left the ED. sb4 Signatures: Dispatcher [employer] EDMS ValleBkHarmeet ds4 Gavin Olivera PA PA cp Prokisch, Amanda RN RN ap3 Christ Jackson RN RN jj7 Juliet Elizalde PA-C PAJerica sb4 Daren Sahni RN RN rs5 Beatriz Fenton Corrections: (The following items were deleted from the chart) 14:45 09:35 General: Appears in no apparent distress. rs5 rs5 14:48 14:46 BP 128 / 75; Pulse 67bpm; Resp 17bpm; Pulse Ox 99% RA; rs5 rs5 14:48 13:00 BP 133 / 77; Pulse 70bpm; Resp 18bpm; Pulse Ox 99% RA; rs5 rs5 14:48 13:00 BP 126 / 79; Pulse 72bpm; Resp 17bpm; Pulse Ox 99% RA; rs5 rs5
--- NOTE | 2023-11-09 12:04 | EDPHYS ---
Physician Documentation [facility] Name: Sadie Reyna Age: 78 yrs Sex: Female : 1945 Arrival Date: 11/09/2023 Time: 09:06 Bed 13 Private MD: ROSE Physician Gavin Torres HPI: 11/09 09:25 This 78 yrs old Female presents to ER via Ambulatory with complaints of Sinus cp Congestion - Pressure, Dizziness, Mood Change, Neck Pain, >24Hrs Old, Indigestion. 09:25 The patient presents with dizziness, lightheadedness, feeling off balance. Onset: The cp symptoms/episode began/occurred 1 month(s) ago, and became worse today, with generalized shaking. 09:25 Context: occurred while the patient was walking. Associated signs and symptoms: cp Pertinent positives: headache. 09:25 Patient's baseline: Neuro: alert and fully oriented, Motor: no deficits, Ambulation: cp walks without assistance, Speech: normal. 09:25 Patient also reports pain to left shoulder in area of incision where cyst was removed cp recently. Patient reports sutures were removed yesterday, but is concerned that wound may be infected due to pain. Historical: - Allergies: 09:24 Codeine; jj7 09:24 PENICILLINS; jj7 - PMHx: 09:24 Diabetes mellitus; Hypertensive disorder; Glaucoma; jj7 - PSHx: 09:24 LEFT KNEE REPLACEMENT; CYST REMOVED FROM LEFT SHOULDER; CATARACT; TUBIAL LIGATION; jj7 - Immunization history:: Adult Immunizations up to date, . - Social history:: Smoking status: Patient denies any tobacco usage or history of. Patient/guardian denies using alcohol, street drugs. ROS: 09:50 Constitutional: Negative for body aches, chills, fever, poor PO intake, cp 09:50 Cardiovascular: Negative for chest pain, edema, palpitations, cp 09:50 Respiratory: Negative for cough, shortness of breath, wheezing, 09:50 Abdomen/GI: Negative for abdominal pain, vomiting, diarrhea, constipation, 09:50 Eyes: Negative for injury, pain, redness, and discharge, cp 09:50 ENT: Positive for sinus congestion, Negative for drainage from ear(s), ear pain, difficulty swallowing, difficulty handling secretions, 09:50 Neck: Positive for pain at rest, cp 09:50 Skin: Positive for erythema, of the anterior aspect of left shoulder, 09:50 Neuro: Positive for dizziness, headache, Negative for speech changes, syncope, visual changes, weakness, 09:50 All other systems are negative, Exam: 09:55 Constitutional: The patient appears in no acute distress, alert, awake, cp non-diaphoretic, non-toxic, well developed, well nourished, 09:55 Head/Face: Normocephalic, atraumatic. cp 09:55 Eyes: Periorbital structures: appear normal, Pupils: equal, round, and reactive to light and accomodation, Extraocular movements: intact throughout, Conjunctiva: normal, no exudate, no injection, Lids and lashes: appear normal, bilaterally, :55 ENT: External ear(s): are unremarkable, Ear canal(s): are normal, clear, TM's: dullness, bilaterally, Nose: is normal, Mouth: Lips: moist, Oral mucosa: moist, Posterior pharynx: Airway: no evidence of obstruction, patent, 09:55 Neck: C-spine: vertebral tenderness, is not appreciated, crepitus, is not appreciated, 09:55 Chest/axilla: Inspection: normal, :55 Cardiovascular: Rate: normal, Rhythm: regular, Edema: is not appreciated, JVD: is not appreciated, :55 Respiratory: the patient does not display signs of respiratory distress, Respirations: normal, no use of accessory muscles, no retractions, labored breathing, is not present, Breath sounds: are clear throughout, no decreased breath sounds, no stridor, no wheezing, :55 Abdomen/GI: Inspection: abdomen appears normal, Palpation: soft, in all quadrants, :55 Back: pain, is absent, ROM is normal, :55 Skin: incision noted anterior left shoulder that appears with mild erythema, tender to palpation. 09:55 Neuro: Orientation: to person, place \T\ time. Mentation: is normal, Motor: moves all fours, strength is normal, Sensation: no obvious gross deficits, 10:50 ECG was reviewed by the Attending Physician. cp Vital Signs: 09:17 BP 167 / 78; Pulse 86; Resp 20; Temp 98.1; Pulse Ox 100% ; Weight 64.05 kg; Height 5 jj7 ft. 2 in. ; Pain 2/10; 10:01 BP 133 / 77; Pulse 70; Resp 18; Temp 98(O); Pulse Ox 99% on R/A; rs5 12:10 BP 126 / 79; Pulse 72; Resp 17; Pulse Ox 99% on R/A; rs5 14:46 BP 128 / 75; Pulse 67; Resp 17; Pulse Ox 99% on R/A; rs5 09:17 Body Mass Index 25.83 (64.05 kg, 157.48 cm) [facility] 09:17 Pain Scale: Adult [facility] MDM: 09:34 Patient medically screened. bell 11:00 Differential diagnosis: cardiac arrhythmia, CVA, head injury, hypovolemia, idiopathic cp dizziness, sepsis. 12:35 Data reviewed: vital signs, nurses notes, lab test result(s), EKG, radiologic studies, cp CT scan, plain films. 12:45 Management of patient was discussed with the following: Primary Care Provider: DR Ott will admit after discussion. 11/09 09:23 Order name: Basic Metabolic Panel; Complete Time: 11:17 11/09 11:17 Interpretation: Normal except: GLUC 240; GFR 65; CA 10.4. 11/09 09:23 Order name: CBC with Diff; Complete Time: 11:17 11/09 11:17 Interpretation: Normal except: RBC 4.99; HGB 15.8; HCT 46.0; ETHAN% 79.4; LYM% 13.5. 11/09 09:23 Order name: LFT's; Complete Time: 11:17 11/09 11:17 Interpretation: Normal except: GLOB 4.0. 11/09 09:23 Order name: Magnesium; Complete Time: 11:17 cp 11/09 09:23 Order name: Troponin HS; Complete Time: 11:17 cp 11/09 09:23 Order name: Urinalysis W/Microscopic; Complete Time: 11:17 11/09 11:18 Interpretation: Normal except: [facility] Extremely Turbid; UGLUC 2+; UKET TRACE; UPROT cp TRACE; UESTR 75. 11/09 09:24 Order name: Lactate w/ 2H reflex if indic.; Complete Time: 11:17 11/09 11:18 Interpretation: Abnormal: LAC 2.4. 11/09 11:52 Order name: Blood Culture Adult (2) cp 11/09 13:45 Order name: Basic Metabolic Panel EDMT 11/09 13:45 Order name: Basic Metabolic Panel EDMT 11/09 13:45 Order name: CBC with Automated Diff EDMS 11/09 13:45 Order name: CBC with Automated Diff EDMT 11/09 15:10 Order name: Lactate Sepsis 2 HR Follow-up EDMT 11/09 09:24 Order name: XRAY Shoulder LEFT 2 view; Complete Time: 11:17 cp 11/09 10:15 Order name: CT Head C Spine; Complete Time: 12:31 cp 11/09 10:15 Order name: CT Head Angio; Complete Time: 12:31 cp 11/09 10:15 Order name: CT Neck Angio; Complete Time: 12:31 cp 11/09 11:19 Order name: XRAY Chest (1 view) 11/09 16:45 Order name: US EDMT 11/09 09:23 Order name: EKG; Complete Time: 09:24 cp 11/09 13:45 Order name: CONS Physician Consult EDMT 11/09 09:23 Order name: Cardiac monitoring; Complete Time: 13:45 cp 11/09 09:23 Order name: EKG - Nurse/Tech; Complete Time: 10:48 cp 11/09 09:23 Order name: IV Saline Lock; Complete Time: 10:20 cp 11/09 09:23 Order name: Labs collected and sent; Complete Time: 10:20 cp 11/09 09:23 Order name: O2 Per Protocol; Complete Time: 10:20 11/09 09:23 Order name: O2 Sat Monitoring; Complete Time: 10:20 cp EC:50 Rate is 74 beats/min. Rhythm is regular. MN interval is normal. QRS interval is normal. cp QT interval is normal. Interpreted by me. Reviewed by me. Administered Medications: 10:34 Drug: NS 0.9% IV 500 ml IV at 250 ml/hr continuous Route: IV; Rate: 250 ml/hr; Site: [facility] right forearm; 11:00 Follow up: Response: No adverse reaction rs5 10:35 Drug: Ondansetron IVP 4 mg IVP once; over 2 minutes Route: IVP; Site: right forearm; j 11:00 Follow up: Response: No adverse reaction rs5 10:36 Drug: Famotidine IVP 20 mg IVP once; dilute with 10 mL 0.9% NaCl; give over 2 minutes jj7 Route: IVP; Site: right forearm; 11:00 Follow up: Response: No adverse reaction rs5 10:36 Drug: Meclizine PO 25 mg PO once Route: PO; jj7 12:20 Follow up: Response: No adverse reaction rs5 13:08 Drug: vancoMYCIN IVPB 1 grams IVPB once over 2 hrs Route: IVPB; Infused Over: 2 hrs; rs5 Site: right antecubital; 13:30 Follow up: Response: No adverse reaction rs5 13:08 Drug: NS 0.9% IV 500 ml IV at 500 ml/hr continuous Route: IV; Rate: 500 ml/hr; Site: rs5 right antecubital; 13:30 Follow up: Response: No adverse reaction rs5 13:45 Drug: Aspirin PO Chewable Tablet 81 mg PO once Route: PO; rs5 15:20 Drug: foLIC Acid IVPB 1 mg IVPB once Route: IVPB; Site: right antecubital; rs5 Disposition Summary: 11/09/23 12:03 Hospitalization Ordered Notes: Hospitalization Status: Observation cp Condition: Stable cp Problem: new cp Symptoms: have improved cp Bed/Room Type: Standard cp Provider: Rosas Ott(11/09/23 12:07) cp Location: [facility] ER HOLD(11/09/23 14:06) sp Room Assignment: ERHOLD-(11/09/23 14:06) sp Diagnosis - Cellulitis of left upper limb - left shoulder cp Forms: - Medication Reconciliation Form cp - SBAR form cp - Leadership Thank You Letter cp Signatures: Dispatcher [employer] Gavin Torres MD MD cha Pinkerton, Shawna sp Page, Corey, PA PA cp Johnson, Juwairiyah, RN RN jj7 Daren Sahni RN RN rs5 Corrections: (The following items were deleted from the chart) 12:07 12:03 Braeden Sahu cp cp 14:06 12:03 Telemetry/MedSurg (observation) cp sp 14:06 12:03 cp sp 11/10 17:30 11/09 09:25 Onset: The symptoms/episode began/occurred 1 month(s) ago, and became worse cp today, cp
--- NOTE | 2023-11-09 12:10 | RAD REPORT ---
EXAM DESCRIPTION: CT - Head C Spine Mpr Wo Con - 11/09/2023 11:37 am CLINICAL HISTORY: Dizziness and radiculopathy COMPARISON: None. TECHNIQUE: Computed axial tomography of the head and cervical spine was obtained. Sagittal and coronal reconstruction was performed. All CT scans are performed using dose optimization technique as appropriate and may include automated exposure control or mA/KV adjustment according to patient size. FINDINGS: An intracranial bleed is not seen. The ventricles are normal in caliber. 5 millimeter low-density area right basal ganglia. An extra-axial fluid collection is not noted. Fluid within the visualized sinuses and mastoids is not seen A cervical fracture is not visualized. No dislocation is noted. Mild anterior subluxation C2 on C3 and C7 on T1. Mild posterior subluxation C5 on C6. Spondylosis most pronounced C5-6. [id number] narrowing the right neural foramina C5-6. Modera te narrowing left neural foramina C5-6 and right neural foramina at C4-5 IMPRESSION: 5 millimeter low-density area right basal ganglia probably lacunar infarction. Age is i ndeterminate. A cervical fracture is not visualized. Spondylosis most pronounced C5-6 resulting in moderate to marked right foraminal stenosis MRI brain and cervical spine may be helpful for further evaluation
--- NOTE | 2023-11-09 12:20 | RAD REPORT ---
EXAM DESCRIPTION: CTHead angio11/09/2023 11:39 am CLINICAL HISTORY: Dizziness, neck pain, radiculopathy COMPARISON: None TECHNIQUE: 100 cc Isovue [address] angiogram of the head was obtained. 3D MIPS reconstruction performed. All CT scans are performed using dose optimization technique as appropriate and may include automated exposure control or mA/KV adjustment according to patient size. FINDINGS: The basilar, anterior cerebral, middle cerebral and posterior cerebral arteries do not dem onstrate a high-grade stenosis Mild calcified plaque distal internal carotid arteries An aneurysm is not seen No large vessel occlusion IMPRESSION: No significant abnormality is displayed
--- NOTE | 2023-11-09 12:21 | RAD REPORT ---
EXAM DESCRIPTION: Chaim Angio11/09/2023 11:38 am CLINICAL HISTORY: Dizziness, radiculopathy, neck pain COMPARISON: None TECHNIQUE: 100 cc Isovue [address] angiogram of the neck was obtained. 3D MIPS reconstruction performed. All CT scans are performed using dose optimization technique as appropriate and may include automated exposure control or mA/KV adjustment according to patient size. FINDINGS: Mild plaque is present within common carotid, internal carotid and external carotid arteri es bilaterally Mild plaque within the vertebral arteries No dissection is seen. No high-grade stenosis IMPRESSION: Mild plaque within the carotid and vertebral arteries [place] Mild stenosis 0 to 49 % Moderate stenosis 50-69% Severe stenosis 70-99%
--- NOTE | 2023-11-09 12:41 | RAD REPORT ---
EXAM DESCRIPTION: [place] Single View11/09/2023 12:24 pm CLINICAL HISTORY: cough COMPARISON: October 25, 2023 FINDINGS: The lungs appear clear of acute infiltrate. The heart is normal size IMPRESSION: No acute abnormalities displayed
[2023-11-09] MEDS ORDERED: VANCOMYCIN 1 GM/VIAL ONE (13:09)
[2023-11-09] MEDS ORDERED: NA CHLORIDE 0.9% 500 ML ONE (13:11)
[2023-11-09] MEDS ORDERED: NA CHLORIDE 0.9% 250 ML ONE (13:24)
[2023-11-09] MEDS ORDERED: ONDANSETRON 4 MG/2 ML VIAL IV PRN (13:40)
[2023-11-09] MEDS ORDERED: ASPIRIN 81 MG CHEWABLE TABLET ONE (13:47)
[2023-11-09] MEDS ORDERED: VANCOMYCIN 1 GM in NA CHLORIDE 0.9% 250 ML IVPB SCH (14:00)
[2023-11-09] MEDS ORDERED: FOLIC ACID 5 MG/ML VIAL ONE (15:18)
--- NOTE | 2023-11-09 15:31 | P.SSS ---
Patient History Date of Service: 11/09/23 Reason for admission: DIZZY ON STANDING. History of Present Illness: KARELY HAS HAD RECENT CYST SURGERY. SHE HAS BEEN DIZZY STANDING UP. NO FEVER BUT WAS SOMEWHAT NAUSEOUS AND BELCHING. Allergies codeine Allergy (Verified 10/18/23 10:27) Hives Penicillins Allergy (Verified 10/18/23 10:27) Hives Home medications list reviewed: Yes Home Medications: Amlodipine Besylate 1 tab PO DAILY 10/18/23 Spironolact/Hydrochlorothiazid [Spironolactone-Hctz 25-25 Tab] 5 mg PO DAILY 10/18/23 Tramadol HCl/Acetaminophen [Ultracet Tablet] 1 each PO Q6H PRN #1 10/18/23 bisoproloL fumarate [Zebeta*] 1 tab PO DAILY 10/18/23 Review of Systems 10-point ROS is otherwise unremarkable General: Weakness Genitourinary: As per HPI Physical Examination - Physical Exam General: Oriented x3, Mild distress HEENT: Atraumatic, PERRLA, Mucous membr. moist/pink, EOMI, Sclerae nonicteric Neck: Supple, 2+ carotid pulse no bruit, No LAD, Without JVD or thyroid abnormality Respiratory: Clear to auscultation bilaterally, Normal air movement Cardiovascular: Regular rate/rhythm, Normal S1 S2 Gastrointestinal: Soft and benign, Tenderness (MILD RUQ, NO REBOUND) Musculoskeletal: No tenderness Integumentary: No rashes Neurological: Normal gait, Normal speech, Normal strength at 5/5 x4 extr, Normal tone, Normal affect Lymphatics: No axilla or inguinal lymphadenopathy - Studies Laboratory Data (last 24 hrs) 11/09/23 11/09/23 10:15 10:15 WBC 9.90 Hgb 15.8 H Hct 46.0 H Plt Count 232 Sodium 137 Potassium 3.8 BUN 18 Creatinine 0.92 Glucose 240 H Magnesium 1.9 Total Bilirubin 0.4 AST 19 ALT 33 Alkaline Phosphatase 95 - Diagnosis (Problem(s)) (1) Dizzy Current Visit: Yes Status: Acute Plan: STROKE IN BASAL GANGLIA IS NOT ACUTE. TALKED TO DR. SYZMANSKI HE WANTS ASA AND PLAVIX DAILY FOR 4 WEEKS. FU MRI BY HIM. STABLE TO GO HOME. (2) Abdominal pain, RUQ Current Visit: Yes Status: Acute Plan: STAT SONOGRAM ORAL ANTIBIOTICS. (3) GERD (gastroesophageal reflux disease) Current Visit: Yes Status: Chronic (4) Chronic anxiety Current Visit: Yes Status: Acute - Disposition Disposition: ROUTINE DISCHARGE
--- NOTE | 2023-11-09 16:44 | RAD REPORT ---
EXAM DESCRIPTION: US - Abdomen Exam Limited - 11/09/2023 4:07 pm CLINICAL HISTORY: Abdominal pain. COMPARISON: None. FINDINGS: Multiple gallstones. The gallbladder wall upper limits normal thickness The biliary tree is normal caliber. Echogenic liver probably fatty infiltration Pancreas appears normal in size and echotexture IMPRESSION: Cholelithiasis
[2023-11-09 17:29] VITALS: BMI 25.6
[2023-11-09 20:15] VITALS: TEMP 98; O2SAT 99
[2023-11-09 20:21] VITALS: BP 128/75
[2023-11-10] MEDS ORDERED: VANCOMYCIN 1.25 GM in NA CHLORIDE 0.9% 250 ML IVPB SCH (14:00)
--- NOTE | 2023-11-14 13:37 | EKG ---
Test Date: 2023-11-09 Test Time: 10:44:20 Office Machinery Or Equipment Installer: ERICA MEASUREMENT RESULTS: Intervals: Rate: 74 OK: 172 QRSD: 68 QT: 350 QTc: 388 [place]: P: 72 OK: 172 QRS: -1 T: 63 INTERPRETIVE STATEMENTS: Normal sinus rhythm Nonspecific T wave abnormality Abnormal ECG Compared to ECG 10/18/2023 11:39:03 No significant changes Electronically Signed On 11-14-23 13:26:27 [employer]PERVIS[employer] by Ki Aguilar
== END 2023-11-09 20:30 | disposition home or self-care (01) | DRG 149 ==
LOC: ER 09:06 → ERHOLD 13:38
PROVIDERS: ADMIT Internal Medicine; ATTEND Internal Medicine
DX: R42 Dizziness and giddiness (principal); R10.11 Right upper quadrant pain; K21.9 Gastro-esophageal reflux disease without esophagitis; F41.9 Anxiety disorder, unspecified; E11.9 Type 2 diabetes mellitus without complications; I10 Essential (primary) hypertension; H40.9 Unspecified glaucoma; Z86.73 Personal history of transient ischemic attack (TIA), and cerebral infarction without residual deficits
CPT/HCPCS: 36415; 70450; 70496; 70498; 71045; 72125; 76705; 80048; 80076; 81001; 83605; 83735; 84484; 85025; 87040; 93005; 99284; J2405; J7030; J7040; J7050; J8597; Q9967

== ENCOUNTER 2023-12-11 08:04 | Day surgery (SDC) | payer OTHER ==
[2023-12-11] MEDS ORDERED: NA CHLORIDE 0.9% 1,000 ML ONE (08:33)
--- NOTE | 2023-12-11 08:50 | RAD REPORT ---
EXAM DESCRIPTION: Edie Gomez And [place] (2 Views)12/11/2023 8:41 am CLINICAL HISTORY: Preop COMPARISON: October 2023 FINDINGS: The lungs appear clear of acute infiltrate. The heart is normal size IMPRESSION: No acute abnormalities displayed
[2023-12-11 09:19] LABS: Absolute Lymphocytes (CBC) 1.9 K/uL (0.7-4.9); Hematocrit 43.9 % (36.0-45.0); Lymphocytes % 19.8 % (15.3-44.8); MCV 92.5 fL (80-100); MPV 9.3 fL (7.6-11.3); Platelets 235 thou/uL (152-406); RBC Red Blood Cell Count 4.75 M/uL (3.86-4.86)
[2023-12-11] MEDS ORDERED: propofoL 200 MG/20 ML VIAL IV ONE (09:29)
[2023-12-11] MEDS ORDERED: ONDANSETRON 4 MG/2 ML VIAL ONE ×2 (09:29→12:02)
[2023-12-11] MEDS ORDERED: FENTANYL CITR 100 MCG/2 ML ONE ×2 (09:29→10:46)
[2023-12-11] MEDS ORDERED: ROCURONIUM 50 MG/5 ML VIAL IV ONE (09:29)
[2023-12-11] MEDS ORDERED: LIDOCAINE 2% MPF 5 ML VIAL ONE (09:30)
[2023-12-11] MEDS ORDERED: SUGAMMADEX SODIUM 200 MG/2 ML VIAL IV ONE (09:36)
[2023-12-11 09:37] LABS: Albumin 4.3 g/dL (3.4-5.0); Bilirubin Direct 0.1 mg/dL (0-0.2); Bilirubin Indirect, Calculated 0.4 mg/dL (0.2-0.8); Bilirubin Total 0.5 mg/dL (0.2-1.0); Protein, Total 8.2 g/dL (6.4-8.2)
[2023-12-11] MEDS ORDERED: CIPROFLOXACIN 400mg IV 400 MG/200 ML BAG IV ONE (09:41)
[2023-12-11] MEDS ORDERED: dexAMETHasone 10 MG/ML VIAL ONE (10:13)
[2023-12-11] MEDS ORDERED: EPHEDRINE SULF 50 MG/ML VIAL ONE (10:26)
[2023-12-11] MEDS ORDERED: GLYCOPYRROLATE 0.2 MG/ML SYR ONE (11:06)
--- NOTE | 2023-12-11 11:26 | P.BOP ---
Preoperative diagnosis: acute cholecystitis, symptomatic cholelithiasis, nausea, vomit Postoperative diagnosis: sme Primary procedure: Laparoscopic cholecystectomy Estimated blood loss: <10cc Specimen: gb Findings: inflammed gallbladder Anesthesia: General Complications: None Drain(s): FARNCE drain Transferred to: Recovery Room Condition: Good
[2023-12-11] MEDS: HYDROMORPHONE HCL 1 MG/ML INJ ONE ×5 (12:02→12:17)
--- NOTE | 2023-12-11 12:32 | OP ---
Date of Procedure: 12/11/2023 Surgeon: Gato Sage MD Preoperative Diagnoses: Acute cholecystitis, symptomatic cholelithiasis, nausea, vomiting, chronic a bdominal pain. Postoperative Diagnoses: Acute cholecystitis, symptomatic cholelithiasis, nausea, vomiting, chronic abdominal pain. Procedure: Laparoscopic cholecystectomy. Estimated Blood Loss: Less than 10 mL. Specimen: Gallbladder. Findings: Inflamed gallbladder. Anesthesia: General plus local. Drains: [place] #10. Indications: This is the case of a 78-year-old patient, for months, she has been complaining of abdo svetlana pain, nausea, vomiting, diagnosed with acute cholecystitis, symptomatic cholelithiasis, also dy skinesia. Benefits, alternatives, and risks laparoscopic possible open cholecystectomy fully explain ed, which include, but not limited to infection, bleeding, damage to adjacent structures, anesthesia complication, choledocholithiasis, bile leak, pancreatitis, [place], and . She also understands this may not relieve the symptoms. She might need more than one surgical intervention. She understood, signed a consent. Description Of Procedure: The patient was brought to the operating room, placed in supine position. Anesthesia was done without complication. Abdominal area was prepped and draped in sterile fashion Marcaine 0.5% was injected for local anesthetic, followed by sharp incision of the skin in the perium bilical region. Incision was carried down to fascia, which was opened under direct vision. Peritone um was encountered, opened under direct vision. Vicryl #1 placed inside the fascia. Lam trocar w as carefully introduced, no bleeding was obtained. I placed 3 more 5 mm trocar in the epigastric rig ht upper quadrant area under the direct visualization. This allowed me to put a grasper in the fundu s of the gallbladder. There is a contraction and swelling of the gallbladder wall consistent with th e imaging findings. Another grasper was placed in the infundibulum. The gallbladder was retracted i n the inferolateral fashion, exposing the triangle of Calot and obtaining critical view. Some of the cystic duct stones were flushed back into the gallbladder area until we have a cystic duct soft with stones pushed proximally into the gallbladder. Because of the size of the cystic duct, after making sure we protect the hepatic arteries and protect the common bile duct, hepatic duct was protected. We identify the cystic duct, but this little bit wider than the clip, so we used an Endo-JAIMIE 45 mm no nvascular and fired that, I closed the cystic duct with no leak. The cystic artery was identified, c lipped with 3 clips proximal, 1 clip distal, ligation in middle. A small little branch of it was als o ligated. The hepatic arteries and common bile duct were protected at all times. Gallbladder was r emoved from liver using Bovie cauterizer and removed from abdominal cavity using EndoCatch through th e umbilical incision. The area was inspected once again, no bile leak, no bleeding. Due to the infl ammation and we proceeded to leave a [place] drain over that region, exiting through 1 of the trocar sites . This [place] drain was connected to bulb suction and secured in place with 3-0 nylon. The area was ins pected once again. No bile leak. No bleeding. At that moment, I proceeded to remove the trocars un magnus direct vision. Deflated the pneumoperitoneum. Closed the fascia with #1 Vicryl, irrigated subcu taneous tissue, subcuticular closure with 3-0 chromic and Steri-Strips on top. Sponge count, instrum ent counts correct. The patient tolerated the procedure well. The patient was sent to recovery in s table condition. Condition: Stable. Disposition: Home. Activity: As tolerated. No heavy lifting. Follow up in my office in 1 week. Call for appointment [phone]. The patient says she already has Zofran at home for her chronic nausea, so we are going to prescribe her Ultracet q.4 hours p.r.n. pain and Bactrim DS p.o. b.i.d. [place] drain to bulb suction. Recall output q.24 hours. Keep the area dry for 48 hours, then ma y shower. Keep Steri-Strips intact. HM/MODL Voice ID: [id number] Report ID: [id number]
[2023-12-11 13:23] VITALS: BP 181/66; TEMP 96.6; O2SAT 98
--- NOTE | 2023-12-11 17:23 | EKG ---
Test Date: 2023-12-11 Test Time: 09:23:45 Maintenance Director: SAMEER MEASUREMENT RESULTS: Intervals: Rate: 71 RI: 162 QRSD: 68 QT: 372 QTc: 404 [place]: P: 78 RI: 162 QRS: 51 T: 77 INTERPRETIVE STATEMENTS: Normal sinus rhythm Nonspecific T wave abnormality Abnormal ECG Compared to ECG 11/09/2023 10:44:20 No significant changes Electronically Signed On 12-11-23 17:22:51 [employer] by Ki Aguilar
== END 2023-12-11 12:19 | disposition home or self-care (01) ==
LOC: OR 08:04
PROVIDERS: ATTEND Surgery
PROC: 0FT44ZZ Resection of Gallbladder, Percutaneous Endoscopic Approach (ICD-10-PCS; principal; 2023-12-11 11:00)
DX: K80.20 Calculus of gallbladder without cholecystitis without obstruction (principal); K81.0 Acute cholecystitis; K80.12 Calculus of gallbladder with acute and chronic cholecystitis without obstruction; R10.9 Unspecified abdominal pain; R11.2 Nausea with vomiting, unspecified
CPT/HCPCS: 93005; 85025; 80048; 36415; 82947 ×2; 80076; 88304; 83690; 71046; 47562; J2704; J2001; J3010 ×2; J1100; J1170 ×2; J2405 ×2; J0744; J7030